=== PATIENT | female | born 1980 | race Caucasian/White ===

== ENCOUNTER 2018-06-13 18:01 | Inpatient (IN) | payer MEDICAID ==
[~2018-06-13] VITALS: Ht 162.6 cm; Wt 72.7 kg
[~2018-06-13 18:01] MED LIST: FESO4 PO; FOLI1TAB15 PO; LACT10SO32 PO; LEVE500T53 PO; LEVO500P5 PO; MAGN400T25 PO; METO-296 PO; NAPR-1193 PO; PANT40TA25 PO; PAXIL PO; RISP2 PO; SIME80TA12 PO; THIA20TA PO
[2018-06-13] MEDS ORDERED: QUET100T PO (19:49)
[2018-06-13] MEDS ORDERED: LORA0.5T2 PO (19:49)
[2018-06-13] MEDS ORDERED: BENZ1TAB10 PO (19:49)
[2018-06-13] MEDS ORDERED: DIVA-78 PO (19:49)
[2018-06-13 20:05] LABS: AMPHET/METH SCREEN,URINE NEGATIVE (NEGATIVE); BARBITURATE SCREEN, URINE NEGATIVE (NEGATIVE); BENZODIAZEPINES SCREEN,URINE NEGATIVE (NEGATIVE); CANNABINOID SCREEN,URINE NEGATIVE (NEGATIVE); COCAINE SCREEN,URINE NEGATIVE (NEGATIVE); METHADONE SCREEN, URINE NEGATIVE (NEGATIVE); OPIATE SCREEN,URINE NEGATIVE (NEGATIVE)
[2018-06-13 20:07] LABS: PHENCYCLIDINE SCREEN,URINE NEGATIVE (NEGATIVE)
[2018-06-13 20:14] LABS: BASOPHILS % (AUTO) 0.3 % (0.0-2.0); EOSINOPHILS % (AUTO) 4.6 % (1.0-6.0); HEMATOCRIT 38.5 % (36-46); HEMOGLOBIN 13.1 g/dL (12.0-16.0); LYMPHOCYTES # (AUTO) 2.8 K/uL (1.0-4.8); LYMPHOCYTES % (AUTO) 43.2 % (22.0-44.0); MEAN CORPUSCULAR HEMOGLOBIN 34.4 pg (26.0-34.0); MEAN CORPUSCULAR VOLUME 101 fL (80-100); MONOCYTES # (AUTO) 0.6 K/uL (0.1-1.0); NEUTROPHILS # (AUTO) 2.8 K/uL (1.8-7.7); NEUTROPHILS % (AUTO) 42.9 % (40.0-70.0); PLATELET COUNT (AUTO) 180 K/uL (150-450); RED BLOOD CELL COUNT(AUTO) 3.81 MIL/uL (4.00-5.20); RED CELL DISTRIBUTION WIDTH 14.2 % (11.5-14.5)
[2018-06-13 20:30] LABS: ANION GAP 7 mmol/L (8-16); CALCIUM, TOTAL 8.6 mg/dL (8.8-10.5); CARBON DIOXIDE 27 mmol/L (22-29); CHLORIDE 105 mmol/L (98-107); CREATININE 0.95 mg/dL (0.60-1.30); GLOMERULAR FILTR. RATE CALC > 60 mL/min (>60); GLUCOSE,RANDOM 128 mg/dL (70-110); POTASSIUM 3.8 mmol/L (3.5-5.1); SODIUM SERUM 139 mmol/L (136-145); UREA NITROGEN, BLOOD 16 mg/dL (7-18)
[2018-06-13 20:41] LABS: ALANINE AMINOTRANSFERASE 20 U/L (12-78); ALBUMIN 3.4 g/dL (3.4-5.0); ALKALINE PHOSPHATASE 73 U/L (46-116); ASPARTATE AMINOTRANSFERASE 14 U/L (15-37); BILIRUBIN,TOTAL 0.2 mg/dL (0.1-1.0); HCG,QUANTITATIVE 2 mIU/mL (0-6); TOTAL PROTEIN, SERUM 7.3 g/dL (6.4-8.2)
[2018-06-13 23:18] LABS: VALPROIC ACID 56 mcg/mL (50-100)
[2018-06-14] MEDS ORDERED: HALOPERIDOL 5 MG TABLET PO PRN
[2018-06-14] MEDS ORDERED: ZOLPIDEM TARTRATE 10 MG TABLET PO PRN
[2018-06-14] MEDS ORDERED: LORazepam 1 MG TABLET PO PRN
[2018-06-14 03:19] VITALS: BP 125/62
[2018-06-14] MEDS ORDERED: NICOTINE 14 MG/24 HOUR PATCH TD PRN (08:00)
[2018-06-14] MEDS ORDERED: MAG HYDROX/AL HYDROX/SIMETH ES 30 ML SUSPENSION UDCUP PO PRN (08:00)
[2018-06-14] MEDS ORDERED: DOCUSATE SODIUM 100 MG CAPSULE PO PRN (08:00)
[2018-06-14] MEDS ORDERED: PETROLATUM,WHITE 71 GM JELLY TP PRN (08:00)
[2018-06-14] MEDS ORDERED: ACETAMINOPHEN 325 MG TABLET PO PRN (08:00)
[2018-06-14] MEDS ORDERED: IBUPROFEN 400 MG TABLET PO PRN (08:00)
[2018-06-14] MEDS ORDERED: ALBUTEROL SULFATE HFA 90 MCG/PUFF 8 GM INHALER IH PRN (08:00)
[2018-06-14] MEDS ORDERED: ONDANSETRON HCL 4 MG TABLET PO PRN (08:00)
[2018-06-14] MEDS ORDERED: MAGNESIUM HYDROXIDE SUSPENSION 30 ML UDCUP PO PRN (08:00)
[2018-06-14] MEDS ORDERED: CloNIDine HCL 0.1 MG TABLET PO PRN (08:00)
[2018-06-14] MEDS ORDERED: GuaiFENesin/D-METHORPHAN [SUGAR-FREE] 200-20MG/10 ML SYRUP UDCUP PO PRN (08:00)
[2018-06-14] MEDS ORDERED: LOPERAMIDE HCL 2 MG CAPSULE PO PRN (08:00)
[2018-06-14 08:13] VITALS: BP 126/61
[2018-06-14 08:17] LABS: HEMOGLOBIN A1C 5.4 % (4.5-6.2)
[2018-06-14 08:52] LABS: CHOL/HDL RATIO 8.5 (3.9-5.7); FREE T4 (FREE THYROXINE) 0.87 ng/dL (0.76-1.46); THYROID STIMULATING HORMONE 5.19 uIU/mL (0.36-3.74)
[2018-06-14] MEDS: QUEtiapine FUMARATE 100 MG TABLET PO SCH (13:24)
[2018-06-14] MEDS: BENZTROPINE MESYLATE 1 MG TABLET PO SCH (13:24)
[2018-06-14] MEDS: LORazepam 0.5 MG TABLET PO SCH (16:21)
[2018-06-14] MEDS: DIVALPROEX SODIUM 500 MG DR TABLET PO SCH (16:21)
[2018-06-14 16:55] VITALS: BP 129/65
[2018-06-15 06:07] VITALS: BP 108/66
[2018-06-15] MEDS: LEVOTHYROXINE SODIUM 25 MCG TABLET PO SCH (06:13)
[2018-06-15 08:17] VITALS: BP 147/95
[2018-06-15] MEDS: LORazepam 0.5 MG TABLET PO SCH ×2 (09:40→16:48)
[2018-06-15] MEDS: QUEtiapine FUMARATE 100 MG TABLET PO SCH (09:41)
[2018-06-15] MEDS: DIVALPROEX SODIUM 500 MG DR TABLET PO SCH ×2 (09:41→16:48)
[2018-06-15] MEDS: BENZTROPINE MESYLATE 1 MG TABLET PO SCH (09:41)
[2018-06-15 16:19] VITALS: BP 110/62
[2018-06-16] MEDS: LEVOTHYROXINE SODIUM 25 MCG TABLET PO SCH (06:47)
[2018-06-16 07:09] VITALS: BP 115/65
[2018-06-16 08:37] VITALS: BP 114/84
[2018-06-16] MEDS: DIVALPROEX SODIUM 500 MG DR TABLET PO SCH (08:56)
[2018-06-16] MEDS: QUEtiapine FUMARATE 100 MG TABLET PO SCH (08:56)
[2018-06-16] MEDS: LORazepam 0.5 MG TABLET PO SCH (08:56)
[2018-06-16] MEDS: BENZTROPINE MESYLATE 1 MG TABLET PO SCH (08:56)
[2018-06-16] MEDS ORDERED: LEVO25TA9 PO (11:19)
[2018-06-16 16:12] VITALS: BP 117/97
== END 2018-06-16 16:15 | disposition home or self-care (01) | DRG 750 ==
LOC: EMS 18:03 → B3A 06-14 00:30
PROVIDERS: ADMIT Psychiatry & Neurology Psychiatry; ATTEND Psychiatry & Neurology Psychiatry
DX: F20.9 Schizophrenia, unspecified (principal); E83.51 Hypocalcemia; R45.1 Restlessness and agitation; E78.5 Hyperlipidemia, unspecified; E03.9 Hypothyroidism, unspecified; Z28.21 Immunization not carried out because of patient refusal
CPT/HCPCS: 83036; 84439; 84443; G0480

== ENCOUNTER 2018-07-12 19:43 | Emergency (ER) | payer MEDICAID ==
[~2018-07-12 19:43] MED LIST changes: +BENZ1TAB10 PO; +DIVA-78 PO; -FESO4 PO; -FOLI1TAB15 PO; -LACT10SO32 PO; -LEVE500T53 PO; +LEVO25TA9 PO; -LEVO500P5 PO; -MAGN400T25 PO; -METO-296 PO; -NAPR-1193 PO; -PANT40TA25 PO; -PAXIL PO; +QUET100T PO; -RISP2 PO; -SIME80TA12 PO; -THIA20TA PO
== END 2018-07-12 20:30 | disposition left against medical advice (07) ==
LOC: EMS 19:44
DX: Z00.8 Encounter for other general examination (principal); Z53.21 Procedure and treatment not carried out due to patient leaving prior to being seen by health care provider

== ENCOUNTER 2018-07-12 21:20 | Inpatient (IN) | payer MEDICAID ==
[~2018-07-12] VITALS: Ht 162.6 cm; Wt 73.9 kg
[2018-07-12] MEDS ORDERED: LORazepam 2 MG TABLET PO PRN (21:45)
[2018-07-12] MEDS ORDERED: HALOPERIDOL 5 MG TABLET PO PRN (21:45)
[2018-07-12 22:09] VITALS: BP 130/78
[2018-07-13 00:55] VITALS: BP 136/88
[2018-07-13] MEDS ORDERED: MAGNESIUM HYDROXIDE SUSPENSION 30 ML UDCUP PO PRN (07:00)
[2018-07-13] MEDS ORDERED: GuaiFENesin/D-METHORPHAN [SUGAR-FREE] 200-20MG/10 ML SYRUP UDCUP PO PRN (07:00)
[2018-07-13] MEDS ORDERED: IBUPROFEN 400 MG TABLET PO PRN (07:00)
[2018-07-13] MEDS ORDERED: CloNIDine HCL 0.1 MG TABLET PO PRN (07:00)
[2018-07-13] MEDS ORDERED: LOPERAMIDE HCL 2 MG CAPSULE PO PRN (07:00)
[2018-07-13] MEDS ORDERED: ALBUTEROL SULFATE HFA 90 MCG/PUFF 8 GM INHALER IH PRN (07:00)
[2018-07-13] MEDS ORDERED: PETROLATUM,WHITE 71 GM JELLY TP PRN (07:00)
[2018-07-13] MEDS ORDERED: ACETAMINOPHEN 325 MG TABLET PO PRN (07:00)
[2018-07-13] MEDS ORDERED: DOCUSATE SODIUM 100 MG CAPSULE PO PRN (07:00)
[2018-07-13] MEDS ORDERED: MAG HYDROX/AL HYDROX/SIMETH ES 30 ML SUSPENSION UDCUP PO PRN (07:00)
[2018-07-13] MEDS ORDERED: ONDANSETRON HCL 4 MG TABLET PO PRN (07:00)
[2018-07-13] MEDS ORDERED: NICOTINE 14 MG/24 HOUR PATCH TD PRN (07:00)
[2018-07-13 08:46] LABS: BASOPHILS % (AUTO) 0.1 % (0.0-2.0); HEMATOCRIT 37.2 % (36-46); HEMOGLOBIN 12.3 g/dL (12.0-16.0); LYMPHOCYTES # (AUTO) 3.8 K/uL (1.0-4.8); MEAN CORPUSCULAR HEMOGLOBIN 34.3 pg (26.0-34.0); MEAN CORPUSCULAR HGB CONC 33.2 G/dL (31.0-37.0); MEAN CORPUSCULAR VOLUME 103 fL (80-100); MONOCYTES # (AUTO) 0.7 K/uL (0.1-1.0); MONOCYTES % (AUTO) 10.2 % (2.0-9.0); NEUTROPHILS # (AUTO) 2.1 K/uL (1.8-7.7); NEUTROPHILS % (AUTO) 30.7 % (40.0-70.0); PLATELET COUNT (AUTO) 115 K/uL (150-450); RED CELL DISTRIBUTION WIDTH 14.9 % (11.5-14.5)
[2018-07-13] MEDS: QUEtiapine FUMARATE 100 MG TABLET PO SCH ×2 (09:34→16:09)
[2018-07-13] MEDS: DIVALPROEX SODIUM 500 MG DR TABLET PO SCH ×2 (09:34→16:09)
[2018-07-13] MEDS: BENZTROPINE MESYLATE 1 MG TABLET PO SCH (09:34)
[2018-07-13 09:40] LABS: ALBUMIN 2.8 g/dL (3.4-5.0); BILIRUBIN,TOTAL 0.2 mg/dL (0.1-1.0); CALCIUM, TOTAL 8.7 mg/dL (8.8-10.5); CHOL/HDL RATIO 7.4 (3.9-5.7); CREATININE 1.1 mg/dL (0.60-1.30); FREE T4 (FREE THYROXINE) 0.98 ng/dL (0.76-1.46); POTASSIUM 3.5 mmol/L (3.5-5.1); THYROID STIMULATING HORMONE 1.95 uIU/mL (0.36-3.74); TOTAL PROTEIN, SERUM 6.3 g/dL (6.4-8.2)
[2018-07-13 09:41] LABS: HEMOGLOBIN A1C 5.3 % (4.5-6.2)
[2018-07-14 06:13] VITALS: BP 110/75
[2018-07-14] MEDS: QUEtiapine FUMARATE 100 MG TABLET PO SCH ×2 (08:35→17:56)
[2018-07-14] MEDS: DIVALPROEX SODIUM 500 MG DR TABLET PO SCH ×2 (08:35→17:57)
[2018-07-14] MEDS: BENZTROPINE MESYLATE 1 MG TABLET PO SCH (08:35)
[2018-07-14 16:22] VITALS: BP 127/64
[2018-07-14] MEDS: MUPIROCIN CALCIUM 2% 22 GM OINTMENT NASAL SCH (18:00)
[2018-07-15 06:07] VITALS: BP 122/82
[2018-07-15 08:07] VITALS: BP 111/60
[2018-07-15] MEDS: BENZTROPINE MESYLATE 1 MG TABLET PO SCH (08:41)
[2018-07-15] MEDS: DIVALPROEX SODIUM 500 MG DR TABLET PO SCH ×2 (08:41→16:11)
[2018-07-15] MEDS: QUEtiapine FUMARATE 100 MG TABLET PO SCH ×2 (08:41→16:11)
[2018-07-15] MEDS: MUPIROCIN CALCIUM 2% 22 GM OINTMENT NASAL SCH ×2 (08:41→16:10)
[2018-07-15 16:49] VITALS: BP 105/62
[2018-07-16 06:43] VITALS: BP 104/63
[2018-07-16] MEDS: BENZTROPINE MESYLATE 1 MG TABLET PO SCH (08:31)
[2018-07-16] MEDS: QUEtiapine FUMARATE 100 MG TABLET PO SCH ×2 (08:31→16:19)
[2018-07-16] MEDS: MUPIROCIN CALCIUM 2% 22 GM OINTMENT NASAL SCH ×2 (08:31→16:19)
[2018-07-16] MEDS: DIVALPROEX SODIUM 500 MG DR TABLET PO SCH ×2 (08:31→16:19)
[2018-07-16 08:34] VITALS: BP 113/55
[2018-07-16] MEDS ORDERED: DiphenhydrAMINE HCL 25 MG CAPSULE PO ONE (15:45)
[2018-07-16 16:06] VITALS: BP 110/64
[2018-07-17 07:11] VITALS: BP 115/68
[2018-07-17 08:15] VITALS: BP 141/77
[2018-07-17] MEDS ORDERED: BENZTROPINE MESYLATE 1 MG TABLET PO SCH (09:00)
[2018-07-17] MEDS: BENZTROPINE MESYLATE 1 MG TABLET PO SCH (09:43)
[2018-07-17] MEDS: DIVALPROEX SODIUM 500 MG DR TABLET PO SCH ×2 (09:43→16:34)
[2018-07-17] MEDS: MUPIROCIN CALCIUM 2% 22 GM OINTMENT NASAL SCH ×2 (09:43→16:34)
[2018-07-17] MEDS: QUEtiapine FUMARATE 100 MG TABLET PO SCH ×2 (09:43→16:34)
[2018-07-17 16:09] VITALS: BP 106/62
[2018-07-18 06:30] VITALS: BP 110/64
[2018-07-18 08:15] VITALS: BP 100/73
[2018-07-18] MEDS: BENZTROPINE MESYLATE 1 MG TABLET PO SCH (08:56)
[2018-07-18] MEDS: DIVALPROEX SODIUM 500 MG DR TABLET PO SCH ×2 (08:56→16:10)
[2018-07-18] MEDS: QUEtiapine FUMARATE 100 MG TABLET PO SCH ×2 (08:56→16:10)
[2018-07-18] MEDS: MUPIROCIN CALCIUM 2% 22 GM OINTMENT NASAL SCH ×2 (08:58→16:10)
[2018-07-18 15:50] VITALS: BP 123/60
[2018-07-18 16:56] VITALS: BP 123/60
[2018-07-18] MEDS: ZOLPIDEM TARTRATE 10 MG TABLET PO PRN (21:13)
[2018-07-19 06:26] VITALS: BP 112/63
[2018-07-19 08:00] VITALS: BP 100/68
[2018-07-19] MEDS: QUEtiapine FUMARATE 100 MG TABLET PO SCH ×2 (08:29→16:05)
[2018-07-19] MEDS: DIVALPROEX SODIUM 500 MG DR TABLET PO SCH ×2 (08:29→16:05)
[2018-07-19] MEDS: BENZTROPINE MESYLATE 1 MG TABLET PO SCH (08:29)
[2018-07-19] MEDS: MUPIROCIN CALCIUM 2% 22 GM OINTMENT NASAL SCH ×2 (08:29→16:06)
[2018-07-19 16:00] VITALS: BP 105/70
[2018-07-20 06:28] VITALS: BP 129/79
[2018-07-20 08:15] VITALS: BP 124/58
[2018-07-20] MEDS: QUEtiapine FUMARATE 100 MG TABLET PO SCH ×2 (08:22→16:11)
[2018-07-20] MEDS: DIVALPROEX SODIUM 500 MG DR TABLET PO SCH ×2 (08:22→16:11)
[2018-07-20] MEDS: MUPIROCIN CALCIUM 2% 22 GM OINTMENT NASAL SCH ×2 (08:22→16:11)
[2018-07-20] MEDS: BENZTROPINE MESYLATE 1 MG TABLET PO SCH (08:22)
[2018-07-20 16:11] VITALS: BP 117/78
[2018-07-21 06:59] VITALS: BP 116/75
[2018-07-21] MEDS: QUEtiapine FUMARATE 100 MG TABLET PO SCH ×2 (08:08→16:18)
[2018-07-21] MEDS: BENZTROPINE MESYLATE 1 MG TABLET PO SCH (08:08)
[2018-07-21] MEDS: MUPIROCIN CALCIUM 2% 22 GM OINTMENT NASAL SCH (08:08)
[2018-07-21] MEDS: DIVALPROEX SODIUM 500 MG DR TABLET PO SCH ×2 (08:08→16:18)
[2018-07-21 08:17] VITALS: BP 126/65
[2018-07-21 17:02] VITALS: BP 104/69
[2018-07-22 08:18] VITALS: BP 100/55
[2018-07-22] MEDS: DIVALPROEX SODIUM 500 MG DR TABLET PO SCH ×2 (08:19→16:12)
[2018-07-22] MEDS: BENZTROPINE MESYLATE 1 MG TABLET PO SCH (08:19)
[2018-07-22] MEDS: QUEtiapine FUMARATE 100 MG TABLET PO SCH ×2 (08:19→16:12)
[2018-07-22 19:01] VITALS: BP 110/63
[2018-07-22] MEDS: ZOLPIDEM TARTRATE 10 MG TABLET PO PRN (20:07)
[2018-07-23 00:56] VITALS: BP 104/61
[2018-07-23] MEDS: DIVALPROEX SODIUM 500 MG DR TABLET PO SCH ×2 (08:17→16:18)
[2018-07-23] MEDS: BENZTROPINE MESYLATE 1 MG TABLET PO SCH (08:17)
[2018-07-23] MEDS: QUEtiapine FUMARATE 100 MG TABLET PO SCH ×2 (08:17→16:18)
[2018-07-23 08:19] VITALS: BP 102/57
[2018-07-23 16:18] VITALS: BP 113/80
[2018-07-24 07:15] VITALS: BP 110/78
[2018-07-24 08:23] VITALS: BP 109/57
[2018-07-24] MEDS: DIVALPROEX SODIUM 500 MG DR TABLET PO SCH ×2 (08:29→16:57)
[2018-07-24] MEDS: BENZTROPINE MESYLATE 1 MG TABLET PO SCH (08:29)
[2018-07-24] MEDS: QUEtiapine FUMARATE 100 MG TABLET PO SCH ×2 (08:29→16:57)
[2018-07-24 16:10] VITALS: BP 110/60
[2018-07-25 06:22] VITALS: BP 106/64
[2018-07-25] MEDS: BENZTROPINE MESYLATE 1 MG TABLET PO SCH (08:04)
[2018-07-25] MEDS: DIVALPROEX SODIUM 500 MG DR TABLET PO SCH ×2 (08:04→16:07)
[2018-07-25] MEDS: QUEtiapine FUMARATE 100 MG TABLET PO SCH ×2 (08:04→16:07)
[2018-07-25 08:30] VITALS: BP 100/65
[2018-07-25 16:30] VITALS: BP 121/60
== END 2018-07-25 17:45 | disposition home or self-care (01) | DRG 751 ==
LOC: B3A 21:33
PROVIDERS: ADMIT Psychiatry & Neurology Child & Adolescent Psychiatry; ATTEND Psychiatry & Neurology Psychiatry
DX: F29 Unspecified psychosis not due to a substance or known physiological condition (principal); E83.51 Hypocalcemia; E78.5 Hyperlipidemia, unspecified; E03.9 Hypothyroidism, unspecified; F41.9 Anxiety disorder, unspecified; R62.50 Unspecified lack of expected normal physiological development in childhood
CPT/HCPCS: 83036; 84439; 84443; 87081

== ENCOUNTER 2018-10-03 18:19 | Inpatient (IN) | payer MEDICAID ==
[~2018-10-03] VITALS: Ht 153.7 cm; Wt 66.7 kg
[~2018-10-03 18:19] MED LIST changes: -LEVO25TA9 PO
[2018-10-03 21:26] LABS: BASOPHILS % (AUTO) 0.4 % (0.0-2.0); EOSINOPHILS % (AUTO) 3.1 % (1.0-6.0); HEMOGLOBIN 12.6 g/dL (12.0-16.0); LYMPHOCYTES # (AUTO) 2.6 K/uL (1.0-4.8); LYMPHOCYTES % (AUTO) 48.9 % (22.0-44.0); MEAN CORPUSCULAR HEMOGLOBIN 36.4 pg (26.0-34.0); MEAN CORPUSCULAR HGB CONC 34.1 G/dL (31.0-37.0); MEAN CORPUSCULAR VOLUME 107 fL (80-100); MONOCYTES # (AUTO) 0.6 K/uL (0.1-1.0); MONOCYTES % (AUTO) 10.6 % (2.0-9.0); PLATELET COUNT (AUTO) 102 K/uL (150-450); RED BLOOD CELL COUNT(AUTO) 3.47 MIL/uL (4.00-5.20); RED CELL DISTRIBUTION WIDTH 16.1 % (11.5-14.5)
[2018-10-03 21:47] LABS: ANION GAP 8 mmol/L (8-16); CALCIUM, TOTAL 9.1 mg/dL (8.8-10.5); CARBON DIOXIDE 29 mmol/L (22-29); CHLORIDE 104 mmol/L (98-107); CREATININE 1.18 mg/dL (0.60-1.30); GLOMERULAR FILTR. RATE CALC 52 mL/min (>60); GLUCOSE,RANDOM 120 mg/dL (70-110); SODIUM SERUM 141 mmol/L (136-145); UREA NITROGEN, BLOOD 14 mg/dL (7-18)
[2018-10-03 21:53] LABS: ALANINE AMINOTRANSFERASE 19 U/L (12-78); ALBUMIN 3.1 g/dL (3.4-5.0); ALKALINE PHOSPHATASE 63 U/L (46-116); ASPARTATE AMINOTRANSFERASE 17 U/L (15-37); BILIRUBIN,TOTAL 0.3 mg/dL (0.1-1.0)
[2018-10-04] MEDS ORDERED: LORazepam 1 MG TABLET PO PRN (01:00)
[2018-10-04] MEDS ORDERED: ZOLPIDEM TARTRATE 10 MG TABLET PO PRN (01:00)
[2018-10-04] MEDS ORDERED: HALOPERIDOL 5 MG TABLET PO PRN (01:00)
[2018-10-04 05:20] VITALS: BP 112/62
[2018-10-04] MEDS ORDERED: NICOTINE 14 MG/24 HOUR PATCH TD PRN (06:45)
[2018-10-04] MEDS ORDERED: LOPERAMIDE HCL 2 MG CAPSULE PO PRN (06:45)
[2018-10-04] MEDS ORDERED: CloNIDine HCL 0.1 MG TABLET PO PRN (06:45)
[2018-10-04] MEDS ORDERED: IBUPROFEN 400 MG TABLET PO PRN (06:45)
[2018-10-04] MEDS ORDERED: GuaiFENesin/D-METHORPHAN [SUGAR-FREE] 200-20MG/10 ML SYRUP UDCUP PO PRN (06:45)
[2018-10-04] MEDS ORDERED: ONDANSETRON HCL 4 MG TABLET PO PRN (06:45)
[2018-10-04] MEDS ORDERED: DOCUSATE SODIUM 100 MG CAPSULE PO PRN (06:45)
[2018-10-04] MEDS ORDERED: PETROLATUM,WHITE 28 GM JELLY TP PRN (06:45)
[2018-10-04] MEDS ORDERED: MAG HYDROX/AL HYDROX/SIMETH ES 30 ML SUSPENSION UDCUP PO PRN (06:45)
[2018-10-04] MEDS ORDERED: ALBUTEROL SULFATE HFA 90 MCG/PUFF 8 GM INHALER IH PRN (06:45)
[2018-10-04] MEDS ORDERED: ACETAMINOPHEN 325 MG TABLET PO PRN (06:45)
[2018-10-04] MEDS ORDERED: MAGNESIUM HYDROXIDE SUSPENSION 30 ML UDCUP PO PRN (06:45)
[2018-10-04 08:00] VITALS: BP 118/75
[2018-10-04] MEDS: BENZTROPINE MESYLATE 0.5 MG TABLET PO SCH (09:03)
[2018-10-04] MEDS: QUEtiapine FUMARATE 100 MG TABLET PO SCH (09:03)
[2018-10-04 16:14] VITALS: BP 111/71
[2018-10-05 06:07] VITALS: BP 131/80
[2018-10-05 08:04] VITALS: BP 107/69
[2018-10-05] MEDS: QUEtiapine FUMARATE 100 MG TABLET PO SCH ×2 (08:17→17:18)
[2018-10-05] MEDS: BENZTROPINE MESYLATE 0.5 MG TABLET PO SCH ×2 (08:17→17:17)
[2018-10-05 08:22] LABS: BASOPHILS % (AUTO) 0.1 % (0.0-2.0); HEMATOCRIT 38.2 % (36-46); HEMOGLOBIN 12.9 g/dL (12.0-16.0); LYMPHOCYTES % (AUTO) 51.9 % (22.0-44.0); MEAN CORPUSCULAR HEMOGLOBIN 36.9 pg (26.0-34.0); MEAN CORPUSCULAR HGB CONC 33.8 G/dL (31.0-37.0); MEAN CORPUSCULAR VOLUME 109 fL (80-100); MONOCYTES # (AUTO) 0.5 K/uL (0.1-1.0); MONOCYTES % (AUTO) 14.3 % (2.0-9.0); NEUTROPHILS # (AUTO) 1.2 K/uL (1.8-7.7); NEUTROPHILS % (AUTO) 30.7 % (40.0-70.0); PLATELET COUNT (AUTO) 93 K/uL (150-450); RED CELL DISTRIBUTION WIDTH 15.6 % (11.5-14.5)
[2018-10-05 08:37] LABS: HEMOGLOBIN A1C 5.3 % (4.5-6.2)
[2018-10-05 08:53] LABS: ALBUMIN 2.7 g/dL (3.4-5.0); BILIRUBIN,TOTAL 0.4 mg/dL (0.1-1.0); CALCIUM, TOTAL 8.9 mg/dL (8.8-10.5); CHOL/HDL RATIO 8.6 (3.9-5.7); CREATININE 1.27 mg/dL (0.60-1.30); POTASSIUM 4.1 mmol/L (3.5-5.1); THYROID STIMULATING HORMONE 2.27 uIU/mL (0.36-3.74)
[2018-10-05 16:03] VITALS: BP 120/75
[2018-10-06 02:41] VITALS: BP 105/68
[2018-10-06 08:03] VITALS: BP 111/73
[2018-10-06] MEDS: BENZTROPINE MESYLATE 0.5 MG TABLET PO SCH ×2 (09:17→16:04)
[2018-10-06] MEDS: QUEtiapine FUMARATE 100 MG TABLET PO SCH ×2 (09:17→16:04)
[2018-10-06 16:02] VITALS: BP 105/66
[2018-10-07 06:37] VITALS: BP 108/73
[2018-10-07 08:01] VITALS: BP 107/56
[2018-10-07] MEDS: BENZTROPINE MESYLATE 0.5 MG TABLET PO SCH ×2 (08:20→16:11)
[2018-10-07] MEDS: QUEtiapine FUMARATE 100 MG TABLET PO SCH ×2 (08:24→16:11)
[2018-10-07 16:00] VITALS: BP 121/61
[2018-10-07 16:02] VITALS: BP 121/61
[2018-10-08 01:38] VITALS: BP 104/62
[2018-10-08 08:07] VITALS: BP 111/70
[2018-10-08] MEDS: QUEtiapine FUMARATE 100 MG TABLET PO SCH ×2 (08:35→16:23)
[2018-10-08] MEDS: BENZTROPINE MESYLATE 0.5 MG TABLET PO SCH ×2 (08:35→16:23)
[2018-10-08 16:03] VITALS: BP 100/52
[2018-10-08 17:30] VITALS: BP 105/63
[2018-10-09 02:47] VITALS: BP 102/60
[2018-10-09] MEDS: BENZTROPINE MESYLATE 0.5 MG TABLET PO SCH ×2 (08:21→16:04)
[2018-10-09] MEDS: QUEtiapine FUMARATE 100 MG TABLET PO SCH ×2 (08:21→16:03)
[2018-10-09 08:38] VITALS: BP 135/67
== END 2018-10-09 17:20 | disposition home or self-care (01) | DRG 750 ==
LOC: EMS 18:19 → B3A 10-04 01:36
PROVIDERS: ADMIT Psychiatry & Neurology Psychiatry; ATTEND Psychiatry & Neurology Psychiatry
DX: F25.0 Schizoaffective disorder, bipolar type (principal); F79 Unspecified intellectual disabilities; D64.9 Anemia, unspecified; E03.9 Hypothyroidism, unspecified; E78.5 Hyperlipidemia, unspecified; F41.9 Anxiety disorder, unspecified; Q90.9 Down syndrome, unspecified
CPT/HCPCS: 83036; 84443; 87081; G0480

== ENCOUNTER 2018-11-28 16:53 | Emergency (ER) | payer MEDICAID, OTHER ==
[~2018-11-28] VITALS: Ht 147.3 cm; Wt 77.3 kg
[~2018-11-28 16:53] MED LIST changes: -DIVA-78 PO
[2018-11-28] MEDS ORDERED: PROZ10 PO (17:23)
[2018-11-28] MEDS ORDERED: DIVA-78 PO (17:23)
[2018-11-28] MEDS ORDERED: LORA0.5T2 PO (17:23)
[2018-11-28] MEDS ORDERED: ACET325T47 PO (17:23)
[2018-11-28 18:26] LABS: BASOPHILS % (AUTO) 0.2 % (0.0-2.0); EOSINOPHILS % (AUTO) 6.4 % (1.0-6.0); HEMATOCRIT 37.2 % (36-46); HEMOGLOBIN 12.5 g/dL (12.0-16.0); LYMPHOCYTES % (AUTO) 27.7 % (22.0-44.0); MEAN CORPUSCULAR HGB CONC 33.7 G/dL (31.0-37.0); MEAN CORPUSCULAR VOLUME 107 fL (80-100); MONOCYTES # (AUTO) 0.7 K/uL (0.1-1.0); MONOCYTES % (AUTO) 9.4 % (2.0-9.0); NEUTROPHILS % (AUTO) 56.3 % (40.0-70.0); PLATELET COUNT (AUTO) 136 K/uL (150-450); RED BLOOD CELL COUNT(AUTO) 3.48 MIL/uL (4.00-5.20); RED CELL DISTRIBUTION WIDTH 13.5 % (11.5-14.5)
[2018-11-28 18:27] LABS: ANION GAP 8 mmol/L (8-16); CALCIUM, TOTAL 9.2 mg/dL (8.8-10.5); CARBON DIOXIDE 28 mmol/L (22-29); CHLORIDE 105 mmol/L (98-107); GLOMERULAR FILTR. RATE CALC 51 mL/min (>60); GLUCOSE,RANDOM 104 mg/dL (70-110); POTASSIUM 4.3 mmol/L (3.5-5.1); SODIUM SERUM 141 mmol/L (136-145); UREA NITROGEN, BLOOD 12 mg/dL (7-18)
[2018-11-28 18:38] LABS: ALANINE AMINOTRANSFERASE 15 U/L (12-78); ALBUMIN 2.8 g/dL (3.4-5.0); ALKALINE PHOSPHATASE 79 U/L (46-116); ASPARTATE AMINOTRANSFERASE 13 U/L (15-37); BILIRUBIN,TOTAL 0.1 mg/dL (0.1-1.0); TOTAL PROTEIN, SERUM 6.8 g/dL (6.4-8.2)
[2018-11-28 19:45] VITALS: BP 132/81
[2018-11-28 20:47] LABS: HCG,QUANTITATIVE < 1 mIU/mL (0-6); VALPROIC ACID 88 mcg/mL (50-100)
== END 2018-11-28 21:25 | disposition home or self-care (01) ==
LOC: EMS 16:53
DX: F41.9 Anxiety disorder, unspecified (principal); F20.9 Schizophrenia, unspecified
CPT/HCPCS: 36415; 80053; 80164; 84702; 85025; 99285; G0480